=== PATIENT | female | born 1955 | race Two or more races ===

== ENCOUNTER 2016-10-06 | Emergency (ER) | payer MEDICAID, OTHER ==
[~2016-10-06] VITALS: Ht 165.1 cm; Wt 63.5 kg
[~2016-10-06] MED LIST: ASPI81TA31 PO; GERD MED PO; GLYBURIDE PO; HTN MED PO; METFORMIN PO
[2016-10-06] MEDS ORDERED: ONDANSETRON IV *ER 4 MG/2 ML VIAL IV ONE (00:45)
[2016-10-06] MEDS ORDERED: PANTOPRAZOLE SODIUM 40 MG VIAL IV ONE (00:45)
[2016-10-06] MEDS ORDERED: MORPHINE SULFATE 4 MG/1 ML DISP.SYRIN IV ONE (00:45)
[2016-10-06] MEDS ORDERED: MORPHINE SULFATE 4 MG/1 ML DISP.SYRIN ONE (00:51)
[2016-10-06] MEDS ORDERED: ONDANSETRON 4 MG/2 ML VIAL ONE (00:51)
[2016-10-06] MEDS ORDERED: PANTOPRAZOLE SODIUM 40 MG VIAL ONE (00:51)
[2016-10-06 00:56] LABS: BASOPHILS % (AUTO) 0.6 % (0.0-2.0); EOSINOPHILS # (AUTO) 0.1 K/uL (0.0-0.7); EOSINOPHILS % (AUTO) 1.5 % (0.0-7.0); HEMATOCRIT 41.8 % (31.2-41.9); HEMOGLOBIN 14.5 g/dL (10.9-14.3); LYMPHOCYTES # (AUTO) 2.3 K/uL (20.0-40.0); LYMPHOCYTES % (AUTO) 27.2 % (20.5-51.5); MEAN CORPUSCULAR HEMOGLOBIN 30.5 uug (24.7-32.8); MEAN CORPUSCULAR HGB CONC 35 g/dL (32.3-35.6); MEAN CORPUSCULAR VOLUME 87.8 fL (75.5-95.3); MONOCYTES # (AUTO) 0.5 K/uL (2.0-10.0); MONOCYTES % (AUTO) 5.6 % (0.0-11.0); NEUTROPHILS # (AUTO) 5.4 K/uL (1.8-8.9); NEUTROPHILS % (AUTO) 65.1 % (38.5-71.5); PLATELET COUNT (AUTO) 165 K/uL (179-408); RED BLOOD CELL COUNT(AUTO) 4.76 MIL/uL (3.63-4.92); RED CELL DISTRIBUTION WIDTH 12.4 % (12.3-17.7); WHITE BLOOD COUNT (AUTO) 8.3 K/uL (3.8-11.8)
[2016-10-06 01:01] LABS: ALBUMIN 3.9 g/dL (3.4-5.0); BILIRUBIN,DIRECT 0.1 mg/dL (0.0-0.2); BILIRUBIN,TOTAL 0.5 mg/dL (0.2-1.0); CALCIUM 9.7 mg/dL (8.5-10.1); CREATININE 0.7 mg/dL (0.6-1.3); POTASSIUM 3.5 mmol/L (3.5-5.1); TOTAL PROTEIN, SERUM 7.3 g/dL (6.4-8.2)
[2016-10-06 01:43] LABS: *BILIRUBIN,URIN NEGATIVE (NEGATIVE); *BLOOD, URINE Trace-lysed (NEGATIVE); *CLARITY,URINE SLIGHTLY CLOUDY (CLEAR); *COLOR,URINE YELLOW (YELLOW); *KETONES,URINE TRACE (NEGATIVE); *PROTEIN,URINE NEGATIVE (NEGATIVE); *UROBILINOGEN,URINE 0.2 E.U./dl (NORMAL); LEUKOCYTE ESTERASE ,URINE NEGATIVE (NEGATIVE); NITRITE, URINE NEGATIVE (NEGATIVE); UGLUCOSE 2+ (NEGATIVE)
[2016-10-06 01:47] LABS: BACTERIA,URINE FEW /HPF (NONE SEEN); RBC,URINE 0-3 /HPF (0-3); SQUAMOUS EPITHELIAL CELL,UR FEW /HPF (NONE SEEN); WBC,URINE 0-3 /HPF (0-3)
--- NOTE | 2016-10-06 02:00 | NUR ---
IV removed. Catheter intact and site benign. Pressure and 4x4 gauze applied to site. No bleeding noted.
[2016-10-06 02:09] VITALS: BP 128/74
--- NOTE | 2016-10-06 02:09 | NUR ---
Patient discharged to home in stable conditon. Written and verbal after care instructions given. Patient verbalizes understanding of instructions. Ambulated from ER with stable gait. All belongings with patient. Will be driven home by family member in private vehicle.
== END 2016-10-06 02:10 | disposition home or self-care (01) ==
LOC: ER 00:09
DX: R10.13 Epigastric pain (principal); I10 Essential (primary) hypertension; K21.9 Gastro-esophageal reflux disease without esophagitis; E10.9 Type 1 diabetes mellitus without complications; E78.5 Hyperlipidemia, unspecified; Z79.82 Long term (current) use of aspirin
CPT/HCPCS: 36415; 83690; 85025; A4663; C9113; J2270; J2405; J7030

== ENCOUNTER 2018-02-05 07:41 | Emergency (ER) | payer MEDICAID ==
[~2018-02-05] VITALS: Ht 165.1 cm; Wt 68.0 kg
[2018-02-05] MEDS ORDERED: METOCLOPRAMIDE HCL 10 MG/2 ML VIAL IV ONE (08:00)
[2018-02-05] MEDS ORDERED: DIAZEPAM 10 MG/2 ML DISP.SYRIN IV ONE (08:00)
[2018-02-05] MEDS ORDERED: IV NORMAL SALINE 1000 ML BAG IV ONE (08:00)
[2018-02-05] MEDS ORDERED: METOCLOPRAMIDE HCL 10 MG/2 ML VIAL ONE (08:05)
[2018-02-05] MEDS ORDERED: DIAZEPAM 2 MG TABLET ONE (08:11)
[2018-02-05 08:14] LABS: BASOPHILS # (AUTO) 0.1 K/uL (0.0-8.0); BASOPHILS % (AUTO) 0.6 % (0.0-2.0); EOSINOPHILS % (AUTO) 0.1 % (0.0-7.0); HEMATOCRIT 38.3 % (31.2-41.9); HEMOGLOBIN 13.3 g/dL (10.9-14.3); LYMPHOCYTES % (AUTO) 11.5 % (20.5-51.5); MEAN CORPUSCULAR HEMOGLOBIN 30.8 uug (24.7-32.8); MEAN CORPUSCULAR HGB CONC 35 g/dL (32.3-35.6); MEAN CORPUSCULAR VOLUME 88.7 fL (75.5-95.3); MONOCYTES # (AUTO) 0.4 K/uL (2.0-10.0); MONOCYTES % (AUTO) 4.1 % (0.0-11.0); NEUTROPHILS # (AUTO) 7.6 K/uL (1.8-8.9); NEUTROPHILS % (AUTO) 83.7 % (38.5-71.5); PLATELET COUNT (AUTO) 203 K/uL (179-408); RED BLOOD CELL COUNT(AUTO) 4.32 MIL/uL (3.63-4.92)
[2018-02-05] MEDS ORDERED: DIAZEPAM 2 MG TABLET PO ONE (08:15)
[2018-02-05 08:21] LABS: CREATININE 0.6 mg/dL (0.6-1.3); POTASSIUM 3.4 mmol/L (3.5-5.1)
[2018-02-05] MEDS ORDERED: IOHEXOL 350 100 ML INFUS..BTL ONE (08:42)
[2018-02-05] MEDS ORDERED: NORMAL SALINE FLUSH 10 ML DISP.SYRIN ONE (08:42)
[2018-02-05] MEDS ORDERED: SWABABLE VALVE TRANSFER SET EA MC ONE (08:42)
[2018-02-05] MEDS ORDERED: IV NORMAL SALINE 250 ML IV ONE (08:43)
--- NOTE | 2018-02-05 09:46 | NUR ---
Patient is resting comfortably in bed with eyes closed. PATIENT IS PAIN FREE AT THIS TIME.
[2018-02-05] MEDS ORDERED: ACETAMINOPHEN ES 500 MG TABLET ONE (10:20)
[2018-02-05] MEDS ORDERED: IBUPROFEN 600 MG TABLET ONE (10:21)
--- NOTE | 2018-02-05 10:23 | NUR ---
Patient ambulated to the bathroom 3x with slow steady gait, mild headaches still, medicated per MD order.
[2018-02-05] MEDS ORDERED: IBUPROFEN 600 MG TABLET PO ONE (10:30)
[2018-02-05] MEDS ORDERED: ACETAMINOPHEN ES 500 MG TABLET PO ONE (10:30)
--- NOTE | 2018-02-05 10:31 | NUR ---
IV removed. Catheter intact and site benign. Pressure and 4x4 gauze applied to site. No bleeding noted. Patient discharged to home in stable conditon. Written and verbal after care instructions given to patient and daughter. Patient and family verbalized understanding of instructions.
== END 2018-02-05 10:40 | disposition home or self-care (01) ==
LOC: ER 07:41
DX: R51 Headache (principal); M62.838 Other muscle spasm; I70.8 Atherosclerosis of other arteries; I10 Essential (primary) hypertension; K21.9 Gastro-esophageal reflux disease without esophagitis; E11.9 Type 2 diabetes mellitus without complications; Z90.49 Acquired absence of other specified parts of digestive tract
CPT/HCPCS: 36415; 70496; 80048; 85025; 96361; 96374; 99285; A4663; A9150; J2765; J3490; J7030; J7050; Q9967

== ENCOUNTER 2019-01-21 19:26 | Emergency (ER) | payer MEDICAID ==
[~2019-01-21] VITALS: Ht 160 cm; Wt 68.0 kg
[2019-01-21] MEDS: IV NORMAL SALINE 1000 ML BAG IV ONE ×2 (20:07→22:38)
[2019-01-21] MEDS: ONDANSETRON 4 MG/2 ML VIAL IV ONE (20:10)
[2019-01-21] MEDS ORDERED: ONDANSETRON 4 MG/2 ML VIAL ONE (20:11)
[2019-01-21 20:12] LABS: BASOPHILS % (AUTO) 0.4 % (0.0-2.0); EOSINOPHILS % (AUTO) 0.2 % (0.0-7.0); HEMATOCRIT 40.2 % (31.2-41.9); HEMOGLOBIN 13.7 g/dL (10.9-14.3); LYMPHOCYTES # (AUTO) 0.5 K/uL (20.0-40.0); LYMPHOCYTES % (AUTO) 5.2 % (20.5-51.5); MEAN CORPUSCULAR HEMOGLOBIN 30.1 uug (24.7-32.8); MEAN CORPUSCULAR HGB CONC 34 g/dL (32.3-35.6); MEAN CORPUSCULAR VOLUME 88.6 fL (75.5-95.3); MONOCYTES # (AUTO) 0.2 K/uL (2.0-10.0); MONOCYTES % (AUTO) 2.1 % (0.0-11.0); NEUTROPHILS # (AUTO) 9.5 K/uL (1.8-8.9); NEUTROPHILS % (AUTO) 92.1 % (38.5-71.5); PLATELET COUNT (AUTO) 182 K/uL (179-408); RED BLOOD CELL COUNT(AUTO) 4.54 MIL/uL (3.63-4.92); WHITE BLOOD COUNT (AUTO) 10.3 K/uL (3.8-11.8)
[2019-01-21 20:20] LABS: CREATININE 0.8 mg/dL (0.6-1.3); POTASSIUM 3.7 mmol/L (3.5-5.1)
[2019-01-21 20:26] LABS: BILIRUBIN,DIRECT 0.2 mg/dL (0.0-0.2); BILIRUBIN,TOTAL 0.8 mg/dL (0.2-1.0); TOTAL PROTEIN, SERUM 7.2 g/dL (6.4-8.2)
--- NOTE | 2019-01-21 21:00 | NUR ---
Pt is resting comfortably in bed. No acute distress noted. IV fluids infusing. Daughter at bedside.
[2019-01-21] MEDS: HYDROMORPHONE 1 MG/1 ML DISP.SYRIN IV ONE (21:41)
[2019-01-21] MEDS ORDERED: HYDROMORPHONE 1 MG/1 ML DISP.SYRIN ONE (21:41)
--- NOTE | 2019-01-21 23:45 | NUR ---
Pt states she feels better & would like to be d/c at this time. PO challenge well tolerated by pt.
--- NOTE | 2019-01-21 23:48 | NUR ---
IV removed. Catheter intact and site benign. Pressure and 4x4 gauze applied to site. No bleeding noted.
--- NOTE | 2019-01-21 23:54 | NUR ---
Patient discharged to home in stable conditon. Written and verbal after care instructions given. Patient verbalizes understanding of instructions. Pt ambulated out of ER in stable gait. No acute distress noted. Pt states she feels better. Denies any pain. Pt accompanied by daughter who will take pt home.
[2019-01-21 23:55] VITALS: BP 150/75
== END 2019-01-21 23:56 | disposition home or self-care (01) ==
LOC: ER 19:28
DX: N83.201 Unspecified ovarian cyst, right side (principal); I10 Essential (primary) hypertension; R11.2 Nausea with vomiting, unspecified; K21.9 Gastro-esophageal reflux disease without esophagitis; E11.9 Type 2 diabetes mellitus without complications; Z90.49 Acquired absence of other specified parts of digestive tract; Z79.82 Long term (current) use of aspirin; Z79.899 Other long term (current) drug therapy
CPT/HCPCS: 36415; 74176; 76856; 80048; 80076; 82962; 83690; 84484; 85025; 93005; 96361; 96374; 96375; 99284; J1170; J2405; 70030-TC; A4663; J7030

== ENCOUNTER 2019-09-15 14:04 | Emergency (ER) | payer MEDICAID ==
[~2019-09-15] VITALS: Ht 160 cm; Wt 68.0 kg
--- NOTE | 2019-09-15 14:31 | NUR ---
PT IS IN ROOM #1B. DR ARCEO EVALUATED THE PT.
--- NOTE | 2019-09-15 15:31 | NUR ---
PT WAS D/C'd TO HOME AFTER DR ARCEO EVALUATION. D/C INSTRUCTIONS GIVEN TO THE PT BY DR ARCEO.
[2019-09-15 15:33] VITALS: BP 134/72
== END 2019-09-15 15:37 | disposition home or self-care (01) ==
LOC: ER 14:04
DX: R05 Cough (principal); R53.1 Weakness; E11.9 Type 2 diabetes mellitus without complications; Z79.84 Long term (current) use of oral hypoglycemic drugs; I11.9 Hypertensive heart disease without heart failure; K21.9 Gastro-esophageal reflux disease without esophagitis; Z87.01 Personal history of pneumonia (recurrent); Z87.898 Personal history of other specified conditions; J84.10 Pulmonary fibrosis, unspecified; R91.8 Other nonspecific abnormal finding of lung field
CPT/HCPCS: 71045; A4663

== ENCOUNTER 2021-07-22 23:02 | Emergency (ER) | payer MEDICAID ==
[~2021-07-22] VITALS: Ht 160 cm; Wt 63.5 kg
[2021-07-22] MEDS ORDERED: HYDROMORPHONE 1 MG/1 ML DISP.SYRIN IV ONE (23:15)
[2021-07-22] MEDS ORDERED: ONDANSETRON 4 MG/2 ML VIAL IV ONE (23:15)
[2021-07-22] MEDS ORDERED: IV NORMAL SALINE 1000 ML BAG IV ONE (23:15)
[2021-07-22 23:30] LABS: MEAN CORPUSCULAR HEMOGLOBIN 30.5 uug (24.7-32.8); MEAN CORPUSCULAR VOLUME 87.9 fL (75.5-95.3); PLATELET COUNT (AUTO) 245 K/uL (179-408)
[2021-07-22] MEDS ORDERED: HYDROMORPHONE 2 MG/1 ML DISP.SYRIN ONE (23:36)
[2021-07-22] MEDS ORDERED: ONDANSETRON 4 MG/2 ML VIAL ONE (23:36)
[2021-07-22 23:37] LABS: CREATININE 0.7 mg/dL (0.6-1.3); POTASSIUM 2.9 mmol/L (3.5-5.1)
--- NOTE | 2021-07-22 23:40 | NUR ---
Pt marquez straight back to room ED4A after being asisted from the car with a wc. pt triaged after EDMD eval and placed into room, on the gurney in pos of comfort, dressed into a gown and connected to bedside monitor and initial VS obtained. VSS, Pt is NSR without ectopy, RRR, normal s1s2. Pt is complaining of severe pain 10/10 and is rithing around in pain and even yells out from how bad the pain is. Pt denies any CP, PENA, dizziness, sob, or any other discomfort. No s/sx of distress present. pt patiently awaiting resutls
[2021-07-22 23:43] LABS: BILIRUBIN,DIRECT 0.1 mg/dL (0.0-0.2); BILIRUBIN,TOTAL 0.4 mg/dL (0.2-1.0); TOTAL PROTEIN, SERUM 7.8 g/dL (6.4-8.2)
--- NOTE | 2021-07-22 23:45 | NUR ---
EKG performed by Nurse susy, shown go EDID, resulted as negatve.
[2021-07-22] MEDS ORDERED: IOHEXOL 300MG/ML 100 ML INFUS..BTL ONE (23:47)
[2021-07-22] MEDS ORDERED: SWABABLE VALVE TRANSFER SET EA MC ONE (23:47)
[2021-07-22] MEDS ORDERED: IV NORMAL SALINE 250 ML IV ONE (23:47)
[2021-07-22 23:50] LABS: MAGNESIUM 1.9 mg/dL (1.8-2.4)
--- NOTE | 2021-07-22 23:50 | NUR ---
20 g angio inserted into her Rt. AC without difficulty. IV flushing well, pushed the 2mg dilaudid and 4mg of zofrans, the 1L NS bolus is running currently.
--- NOTE | 2021-07-22 23:58 | NUR ---
US tech just finished gullblatter US on patient. Pt resting comfortably in pos of comfort after dilaudid admin. Daughter at the bedside, dozing off to sleep with audible snorring.
[2021-07-23] MEDS ORDERED: IV NS 1000 ML 1,000 ML IV ONE
[2021-07-23 00:14] LABS: THYROID STIMULATING HORMONE 1.262 mIU/mL (0.358-3.740)
[2021-07-23] MEDS: POTASSIUM CHLORIDE 50 ML IV SCH ×4 (01:00→07:30)
[2021-07-23] MEDS: MAGNESIUM SULFATE/D5W 100 ML IV SCH ×2 (01:00)
[2021-07-23] MEDS ORDERED: MAGNESIUM SULFATE/D5W 100 ML ONE (01:23)
[2021-07-23] MEDS ORDERED: POTASSIUM CHLORIDE 0 ML ONE (01:23)
[2021-07-23] MEDS ORDERED: PROCHLORPERAZINE EDISYLATE 10 MG/2 ML VIAL IV ONE (01:30)
[2021-07-23] MEDS ORDERED: HYDROMORPHONE 1 MG/1 ML DISP.SYRIN IV ONE ×3 (01:30→11:45)
[2021-07-23] MEDS ORDERED: IV DEXTROSE 5W-0.45% NS + KCL 1,000 ML IV ONE ×2 (02:00→04:55)
[2021-07-23] MEDS ORDERED: HYDROMORPHONE 1 MG/1 ML DISP.SYRIN ONE ×3 (02:29→11:55)
[2021-07-23] MEDS ORDERED: PROCHLORPERAZINE EDISYLATE 10 MG/2 ML VIAL ONE ×2 (02:29→05:30)
--- NOTE | 2021-07-23 06:27 | NUR ---
REPORT GIVEN TO STEPHANIE BEAVER
[2021-07-23] MEDS ORDERED: POTASSIUM CHLORIDE 150 ML ONE (06:41)
--- NOTE | 2021-07-23 07:30 | NUR ---
Assumed care for pt. No nurse to nurse report received from shiftman as there was no nurse assigned to this pt upon my arrival. Received pt resting in [place] with no s/s of distress noted at this time. Per ER physician pt is a pending transfer vs admisson at this facility. Family is at bedside.
[2021-07-23] MEDS ORDERED: POTASSIUM CHLORIDE 50 ML ONE (07:38)
[2021-07-23] MEDS ORDERED: ONDANSETRON 4 MG/2 ML VIAL IV ONE (11:45)
--- NOTE | 2021-07-23 11:49 | NUR ---
Noted pt moaning, pt stated she is having pain and would like pain medication. notified and pt medicated as ordered. Per ER admitting pt will be transfered to [facility], pending further transfer info.
[2021-07-23] MEDS ORDERED: ONDANSETRON 4 MG/2 ML VIAL ONE (11:56)
--- NOTE | 2021-07-23 12:15 | NUR ---
Per pt's HMO pt has been accepted for transfer at [facility], room 222A, call [phone] for report, eta for roll picker [phone].
--- NOTE | 2021-07-23 12:50 | NUR ---
Pt transfered to [facility] room 222A via [facility] ambulance (arranged by pt's HMO). SBAR report given to SARANYA Garza via telephone ([phone]).
== END 2021-07-23 13:02 | disposition short-term general hospital (02) ==
LOC: ER 23:04
DX: R10.11 Right upper quadrant pain (principal); E87.2 Acidosis; E87.6 Hypokalemia; R19.09 Other intra-abdominal and pelvic swelling, mass and lump; E11.9 Type 2 diabetes mellitus without complications; Z79.84 Long term (current) use of oral hypoglycemic drugs; Z79.82 Long term (current) use of aspirin; Z79.899 Other long term (current) drug therapy; Z90.49 Acquired absence of other specified parts of digestive tract; I10 Essential (primary) hypertension; Z20.822 Contact with and (suspected) exposure to COVID-19
CPT/HCPCS: 36415 ×2; 71045; 74177; 76705; 80048; 80076; 83605 ×2; 83690; 83735; 84443; 85025; 87426; 93005; 96365; 96366; 96368; 96375 ×2; 96376; 99291; J0780; J1170 ×3; J2405 ×2; J3475; J3480 ×2; J3490; Q9967; J7030; J7050